=== PATIENT | male | born 1975 | race Caucasian/White ===

== ENCOUNTER 2017-05-25 16:52 | Emergency (ER) | payer SELFPAY ==
[~2017-05-25] VITALS: Ht 177.8 cm; Wt 70.0 kg
[2017-05-25 18:06] VITALS: BP 128/83
== END 2017-05-25 19:05 | disposition left against medical advice (07) ==
LOC: ER 16:52
DX: Z53.21 Procedure and treatment not carried out due to patient leaving prior to being seen by health care provider (principal)

== ENCOUNTER 2024-05-14 19:57 | Emergency (ER) | payer SELFPAY ==
[~2024-05-14] VITALS: Ht 172.7 cm; Wt 80.0 kg
[2024-05-14 20:10] VITALS: TEMP 98.2; O2SAT 99
[2024-05-14 20:44] VITALS: BP 118/77; PULSE 100; RESP 18
[2024-05-14] MEDS: MORPHINE SULFATE 4 MG/ML INJ (FOR IV/IM USE) IV ONE (21:09)
[2024-05-14] MEDS: ONDANSETRON HCL 4MG/2ML INJ IV ONE (21:09)
[2024-05-14] MEDS: KETOROLAC 15MG/ML VIAL IV ONE (21:09)
== END 2024-05-14 20:48 | disposition left against medical advice (07) ==
LOC: ER 19:57
DX: M25.561 Pain in right knee (principal)
CPT/HCPCS: 99283